=== PATIENT | male | born 1965 | race Caucasian/White ===

== ENCOUNTER 2020-04-24 01:45 | Inpatient (IN) ==
[2020-04-24] MEDS ORDERED: NITROGLYCERIN SL 0.4 MG/TAB TAB ONE (02:01)
[2020-04-24] MEDS ORDERED: ASPIRIN CHEW 324 MG ONE (02:01)
[2020-04-24 02:14] LABS: Basophils # (auto) 0.05 K/uL (0-0.2); Basophils % (auto) 0.5 %; Eosinophils # (auto) 0.34 K/uL (0-0.5); Eosinophils % (auto) 3.1 %; Hematocrit (blood only) 47.6 % (42-52); Hemoglobin 16.5 g/dL (14.0-18.0); Immature Granulocytes # (auto) 0.04 K/uL (0.00-0.02); Immature Granulocytes % (auto) 0.4 %; Lymphocytes # (auto) 2.35 K/uL (1.2-3.4); Lymphocytes % (auto) 21.5 %; Mean Corpuscular Hemoglobin 30.3 pg (25-34); Mean Corpuscular Hgb Conc 34.7 g/dL (32-36); Mean Corpuscular Volume 87.3 fL (80-100); Mean Platelet Volume 9.6 fL (7.4-10.4); Monocytes # (auto) 0.67 K/uL (0.11-0.59); Monocytes % (auto) 6.1 %; Neutrophils # (auto) 7.49 K/uL (1.4-6.5); Neutrophils % (auto) 68.4 %; Platelet Count 290 K/uL (130-400); RDW Standard Deviation 41.2 fL (36.4-46.3); Red Blood Count 5.45 M/uL (4.7-6.1); White Blood Count 10.94 K/uL (4.8-10.8)
[2020-04-24] MEDS ORDERED: HEPARIN (PORCINE) 1000 UNIT/ML 10 ML (CATH LAB USE ONLY) ONE (02:18)
[2020-04-24] MEDS ORDERED: fentaNYL citrate 100 MCG/2 ML VIAL ONE (02:18)
[2020-04-24] MEDS ORDERED: niCARdipine HCL INJ 2.5 MG/ML 10 ML AMP ONE (02:18)
[2020-04-24] MEDS ORDERED: MIDAZOLAM HCL 1 MG/ML 2ML VIAL ONE (02:18)
[2020-04-24] MEDS ORDERED: NITROGLYCERIN/D5W 100MCG/ML 20ML SYR ONE (02:19)
[2020-04-24] MEDS ORDERED: TICAGRELOR 90 MG TAB PO ONE (02:23)
[2020-04-24] MEDS ORDERED: HEPARIN SQ 5000 UNIT HEART ALERT CARP ONE (02:23)
[2020-04-24 02:25] LABS: Albumin Level 4.1 gm/dl (3.4-5.0); BUN Creatinine Ratio 12.4 (10-20); Calcium 9.8 mg/dl (8.5-10.1); Creatinine Clr Calc Pharmacy 94.1 ml/min; Est GFR (African American) 83.8; Est GFR (Non-African American) 72.3; Magnesium 2.1 mg/dl (1.8-2.4); Potassium 3.7 mmol/L (3.5-5.1)
--- NOTE | 2020-04-24 02:31 | Pre Anesthesia Assessment ---
Date of Service April 24, 2020 Pre Sedation Assessment Vital Signs Temp Pulse Pulse Resp BP BP Pulse Ox 04/24/20 02:19 95 04/24/20 02:15 74 18 141/105 H 95 04/24/20 02:10 73 74 18 146/104 H 146/104 H 96 04/24/20 02:05 74 18 175/104 H 97 04/24/20 02:04 81 17 177/122 H 96 04/24/20 01:48 97.7 F 71 19 178/115 H 98 Cardiovascular RRR, no murmur, no edema Respiratory normal respiratory effort, lungs clear to auscultation Pre-Sedation Airway Assessment Smoking Status: Never smoker Hx Sleep Apnea: No Hx Difficult Intubation: No Short, Thick Neck: No Thyromental Distance: > or= 3.5 Finger Breadths Oral Cavity: + WNL Mallampati Class: III ASA: ASA3 Procedure Planning Contraindications for Sedation: none Current Medications Reviewed: Yes Notes The planned sedation has been discussed with the patient. Informed Consent was obtained. I have identified the patient, determined the appropriateness of sedation and have assessed the patient immediately prior to the procedure. All medicine(s) and interventions are by my order.
[2020-04-24 02:32] LABS: iSTAT Hemoglobin 15.6 g/dl (14.0-18.0); iSTAT Ionized Calcium 1.23 mmol/l (1.12-1.32); iSTAT Potassium 3.9 mmol/L (3.3-5.0)
[2020-04-24 02:35] LABS: INR 1.1 (0.9-1.1); Partial Thromboplastin Ratio 0.9; Partial Thromboplastin Time 25.5 Seconds (21.0-31.0); Prothrombin Time 11.5 Seconds (9.0-12.0)
--- NOTE | 2020-04-24 02:37 | Cardiology Consultation ---
Date of Consultation April 24, 2020 Assessment & Plan (1) Acute IA: Presentation consistent with anterior STEMI and recommend proceeding with emergent cardiac catheterization and likely primary PCI. No apparent contraindications to procedure. Discussed risks, benefits, alternatives of procedure with patient and they are willing to proceed. Given IV heparin and ticagrelor 180 mg in the ED. Further recommendations pending findings of coronary angiography. History of Present Illness History of Present Illness 55-year-old man here with acute chest pain and ECG concerning for acute IA. Patient seen emergently in the ED after heart alert activated upon arrival. No significant past cardiac history. No chronic medical issues. Recent left knee meniscal tear post surgical repair on standing NSAIDs currently. Patient began having stuttering chest pain more than 12 hours ago. Pain became more severe this evening will try to go to sleep. Describes substernal pain radiating to back with associated vomiting, diaphoresis. Denies similar symptoms in the past. Chest pain down to 3 out of 10 after several nitroglycerin in ED. Hemodynamically stable. EKG showed anterior ST elevations. Allergies Allergy/AdvReac Type Severity Reaction Status Date / Time Penicillins Allergy Intermediate Rash Verified 04/24/20 02:00 Home Medications Home Medications Medication Instructions Recorded Confirmed Type meloxicam 15 mg PO DAILY 04/24/20 04/24/20 History naproxen 500 mg PO BID 04/24/20 04/24/20 History Patient History Social History Smoking Status: Never smoker Preferred Language: Khmer Feels Safe at Home: Yes Review of Systems Review of Systems: Not obtained in the setting of emergent situation Physical Exam Physical Exam: General: No acute distress HEENT: Sclerae anicteric, mucous membranes moist Lungs: Clear to auscultation bilaterally, no rhonchi or wheezes Cardiac: Regular rate and rhythm, no murmurs. Abdomen: Soft, nontender, nondistended, positive bowel sounds. Extremities: Warm, well perfused, no edema. 2+ radial pulses Skin: No rashes or lesions. Neuro: Nonfocal Psych: Alert orient x3, normal affect and mood Results & Data ([facility]) Vital Signs (Past 12 Hours) Vital Signs Temp Pulse Pulse Resp BP BP Pulse Ox 04/24/20 02:19 95 04/24/20 02:15 74 18 141/105 H 95 04/24/20 02:10 73 74 18 146/104 H 146/104 H 96 04/24/20 02:05 74 18 175/104 H 97 04/24/20 02:04 81 17 177/122 H 96 04/24/20 01:48 97.7 F 71 19 178/115 H 98 PG Care Time/CCT Total # of Minutes Spent Total Time Spent with Patient: Total time spent is greater than 50% in coordination of care (as documented) at patient's floor/unit and/or counseling patient: Coding Level of Care Code 26669 Inpt Consult Level 5 Diagnoses Acute IA I21.9
[2020-04-24 02:43] LABS: Albumin Globulin Ratio 1.1 (0.9-2); Bilirubin,Total 0.8 mg/dl (0.2-1); Creatine Kinase MB 3.6 ng/ml (0.5-3.6); Globulin 3.7 gm/dl (2.5-4.0); Thyroid Stimulating Hormone 1.51 uIu/ml (0.300-4.500); Total Protein 7.8 gm/dl (6.4-8.2); Troponin I 0.122 ng/ml (0-0.045)
--- NOTE | 2020-04-24 02:48 | Emergency Department Note ---
Impression & Plan ST elevation (STEMI) myocardial infarction ED Provider Note NAME: OLIVIA COLLIER AGE: 55 SEX: M ARRIVES VIA: Walk-In INFORMANT: Patient, his ED PROVIDER(S): Manisha Kelly DO CHIEF COMPLAINT: Chest pain PLAN: Disposition: Cardiac Community Outreach Manager Condition: Stable MEDICAL DECISION MAKING: This is a 55-year-old male patient who presents to the emergency department with substernal chest discomfort that radiates to his back and left arm. EKG shows evidence of STEMI. A heart alert was called. Patient received sublingual nitroglycerin and baby aspirin. The patient will go to the cardiac Community Outreach Manager Triage Nursing notes reviewed and agree them. Additional history obtained from patient's Vital Signs: reviewed and remarkable for hypertension Differential diagnosis: STEMI, GERD, NSTEMI, aortic dissection ER treatment provided: Sublingual nitroglycerin Baby aspirin Diagnostics interpreted by me: ECG: Normal sinus rhythm at a rate of [address] segment elevation in the anterior and lateral leads consistent with STEMI. Cardiac Monitoring: Normal sinus rhythm at a rate of [address] segment elevation Laboratory studies: See below Imaging studies: Portable chest x-ray: As per my interpretation-cardiomegaly with no pulmonary infiltrates or consolidation. Narrow mediastinum noted Consultation(s): Dr. Dodge-cardiology HPI: 55/M arrives for evaluation of chest pain. The patient had an initial episode of chest discomfort around noontime today which lasted approximately 15 minutes and radiated through to his back and down his left arm. The patient then had a second episode around 11 PM this evening as he was preparing to go to bed this started in the sub-sternum and radiated through to the back. He woke his up around 1 AM and she brought him here for evaluation. The patient denies ever having pain like this in the past. He did feel somewhat short of breath. The pain did seem to go to his left arm. ROS: See above HPI for pertinent positives & negatives. A total of 10 systems reviewed and were otherwise negative. 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 Extraocular eye muscles are intact, and sclera are anicteric. Nose - moist nasal mucosa without discharge. Mouth - moist buccal mucosa. Oropharynx is nonerythematous and there is no tonsillar exudate or edema noted. Neck: Supple; no JVD, nuchal rigidity, cervical lymphadenopathy, or auscultated bruits. Heart: Regular rate and rhythm. There is a normal S1 and S2 with no murmurs, clicks, or gallops appreciated. Lungs: Clear to auscultation bilaterally with no wheezes, rales, or rhonchi. Abdomen: Soft, completely nontender, nondistended, with good bowel sounds. The re are no palpable pulsatile masses or hepatosplenomegaly. There is no guarding, rigidity, or rebound noted. Extremities: No evidence of cyanosis, clubbing, or edema. There are easily palpable peripheral pulses. Skin: warm and dry with good turgor and no rashes. ED COURSE: Times/Reassessments: 0155: The patient was evaluated in room C 11. A heart alert was called. An order was placed for continuous cardiac monitoring. The patient was in a normal sinus rhythm with obvious ST segment elevation. 2 large-bore IV locks were initiated. The patient was given sublingual nitroglycerin in an effort to treat his chest discomfort and lower his blood pressure. The patient was given baby aspirin to chew. The patient did get some relief of his chest discomfort. I discussed the case with Dr. Dodge at the bedside. I kept the patient's abreast of the situation as she was here in the emergency department. I have personally spent greater than 35 minutes of critical care time in the direct management of this patient. This includes bedside care, interpretation of diagnostic studies, and testing, discussion with consultants, patient, and family members, and other required patient management activities. This 35 minutes is in excess of all separately billable procedures. Manisha Kelly DO Past Med/Surg History Social History Smoking Status: Never smoker Preferred Language: Gabonese Feels Safe at Home: Yes Allergies Allergies Allergy/AdvReac Type Severity Reaction Status Date / Time Penicillins Allergy Intermediate Rash Verified 04/24/20 02:00 Home Meds Home Medications Medication Instructions Recorded Confirmed meloxicam 15 mg PO DAILY 04/24/20 04/24/20 naproxen 500 mg PO BID 04/24/20 04/24/20 Results & Data (ED) Vital Signs Vital Signs - 24 hr 04/24/20 01:48 04/24/20 02:04 04/24/20 02:05 Temperature 36.5 C Temperature Source Oral Pulse Rate 71 74 Pulse Rate [Right Finger] 81 Pulse Rate from SpO2 Sensor 73 Respiratory Rate 19 17 18 Respiratory Effort / Characteristics Non-Labored Spontaneous Respiratory Depth Normal Respiratory Pattern Regular Blood Pressure 178/115 H 175/104 H Blood Pressure [Right Arm] 177/122 H Blood Pressure Mean 136 128 Blood Pressure Mean [Right Arm] 140 Blood Pressure Position [Right Arm] Lying Pulse Oximetry 98 96 97 Oxygen Delivery Method Room Air Sepsis Recent Fever Within 48 Hours No Sepsis New/Unexplained Change in Mental Status N/A Sepsis Action Taken by Nursing No Action Required 04/24/20 02:10 04/24/20 02:15 04/24/20 02:19 Temperature Temperature Source Pulse Rate 73 74 Pulse Rate [Right Finger] 74 Pulse Rate from SpO2 Sensor 73 74 Respiratory Rate 18 18 Respiratory Effort / Characteristics Non-Labored Spontaneous Respiratory Depth Normal Respiratory Pattern Regular Blood Pressure 146/104 H 141/105 H Blood Pressure [Right Arm] 146/104 H Blood Pressure Mean 121 109 Blood Pressure Mean [Right Arm] 118 Blood Pressure Position [Right Arm] Lying Pulse Oximetry 96 95 95 Oxygen Delivery Method Room Air Room Air Sepsis Recent Fever Within 48 Hours Sepsis New/Unexplained Change in Mental Status Sepsis Action Taken by Nursing Laboratory Data Result diagrams: 04/24/20 02:00 04/24/20 02:00 Lab Results 04/24/20 04/24/20 04/24/20 Range/Units 02:00 02:00 02:16 WBC 10.94 H (4.8-10.8) K/uL RBC 5.45 (4.7-6.1) M/uL Hgb 16.5 (14.0-18.0) g/dL POC Hgb (14.0-18.0) g/dl Hct 47.6 (42-52) % POC Hct (42-52) % MCV 87.3 (80-100) fL MCH 30.3 (25-34) pg MCHC 34.7 (32-36) g/dL RDW Std Deviation 41.2 (36.4-46.3) fL RDW Coeff of Neela 13.0 (11.5-14.5) % Plt Count 290 (130-400) K/uL MPV 9.6 (7.4-10.4) fL Immature Gran % (Auto) 0.4 % Neut % (Auto) 68.4 % Lymph % (Auto) 21.5 % [place] % (Auto) 6.1 % Eos % (Auto) 3.1 % Baso % (Auto) 0.5 % Neut # (Auto) 7.49 H (1.4-6.5) K/uL Lymph # (Auto) 2.35 (1.2-3.4) K/uL [place] # (Auto) 0.67 H (0.11-0.59) K/uL Eos # (Auto) 0.34 (0-0.5) K/uL Baso # (Auto) 0.05 (0-0.2) K/uL Immature Gran # (Auto) 0.04 H (0.00-0.02) K/uL PT 11.5 (9.0-12.0) Seconds INR 1.1 (0.9-1.1) APTT 25.5 (21.0-31.0) Seconds PTT Ratio 0.9 POC Sodium (135-144) mmol/L Sodium 141 (136-145) mmol/L POC Potassium (3.3-5.0) mmol/L Potassium 3.7 (3.5-5.1) mmol/L POC Chloride (101-112) mmol/L Chloride 106 (98-107) mmol/L Carbon Dioxide 27 (21-32) mmol/L POC Total CO2 (24-31) mmol/L Anion Gap 8.0 (3-11) POC Anion Gap (16-25) mmol/L POC BUN (7-18) mg/dl BUN 14 (7-18) mg/dl Creatinine 1.13 (0.6-1.4) mg/dl POC Creatinine (0.6-1.3) mg/dl Est Cr Clr Drug Dosing 94.1 ml/min Est GFR ( Amer) 83.8 Est GFR (Non-Af Amer) 72.3 BUN/Creatinine Ratio 12.4 (10-20) Glucose 129 H (70-99) mg/dl POC Glucose (other) (70-99) mg/dl Calcium 9.8 (8.5-10.1) mg/dl POC Ioniz Calcium Juan (1.12-1.32) mmol/l Magnesium 2.1 (1.8-2.4) mg/dl Total Bilirubin 0.8 (0.2-1) mg/dl AST 19 (15-37) U/L ALT 49 (12-78) U/L Alkaline Phosphatase 62 (45-117) U/L Total Creatine Kinase 144 (39-308) U/L CK-MB (CK-2) 3.6 (0.5-3.6) ng/ml CK/CKMB % Calc 2.5 (0-3.0) POC Troponin I (0-0.045) ng/ml Troponin I 0.122 H* (0-0.045) ng/ml Total Protein 7.8 (6.4-8.2) gm/dl Albumin 4.1 (3.4-5.0) gm/dl Globulin 3.7 (2.5-4.0) gm/dl Albumin/Globulin Ratio 1.1 (0.9-2) Lipase 77 (73-393) U/L TSH 1.510 (0.300-4.500) uIu/ml 04/24/20 04/24/20 Range/Units 02:20 02:23 WBC (4.8-10.8) K/uL RBC (4.7-6.1) M/uL Hgb (14.0-18.0) g/dL POC Hgb 15.6 (14.0-18.0) g/dl Hct (42-52) % POC Hct 46 (42-52) % MCV (80-100) fL MCH (25-34) pg MCHC (32-36) g/dL RDW Std Deviation (36.4-46.3) fL RDW Coeff of Neela (11.5-14.5) % Plt Count (130-400) K/uL MPV (7.4-10.4) fL Immature Gran % (Auto) % Neut % (Auto) % Lymph % (Auto) % [place] % (Auto) % Eos % (Auto) % Baso % (Auto) % Neut # (Auto) (1.4-6.5) K/uL Lymph # (Auto) (1.2-3.4) K/uL [place] # (Auto) (0.11-0.59) K/uL Eos # (Auto) (0-0.5) K/uL Baso # (Auto) (0-0.2) K/uL Immature Gran # (Auto) (0.00-0.02) K/uL PT (9.0-12.0) Seconds INR (0.9-1.1) APTT (21.0-31.0) Seconds PTT Ratio POC Sodium 141 (135-144) mmol/L Sodium (136-145) mmol/L POC Potassium 3.9 (3.3-5.0) mmol/L Potassium (3.5-5.1) mmol/L POC Chloride 103 (101-112) mmol/L Chloride (98-107) mmol/L Carbon Dioxide (21-32) mmol/L POC Total CO2 26 (24-31) mmol/L Anion Gap (3-11) POC Anion Gap 17.0 (16-25) mmol/L POC BUN 16 (7-18) mg/dl BUN (7-18) mg/dl Creatinine (0.6-1.4) mg/dl POC Creatinine 1.0 (0.6-1.3) mg/dl Est Cr Clr Drug Dosing ml/min Est GFR ( Amer) Est GFR (Non-Af Amer) BUN/Creatinine Ratio (10-20) Glucose (70-99) mg/dl POC Glucose (other) 138 H (70-99) mg/dl Calcium (8.5-10.1) mg/dl POC Ioniz Calcium Juan 1.23 (1.12-1.32) mmol/l Magnesium (1.8-2.4) mg/dl Total Bilirubin (0.2-1) mg/dl AST (15-37) U/L ALT (12-78) U/L Alkaline Phosphatase (45-117) U/L Total Creatine Kinase (39-308) U/L CK-MB (CK-2) (0.5-3.6) ng/ml CK/CKMB % Calc (0-3.0) POC Troponin I 0.12 H (0-0.045) ng/ml Troponin I (0-0.045) ng/ml Total Protein (6.4-8.2) gm/dl Albumin (3.4-5.0) gm/dl Globulin (2.5-4.0) gm/dl Albumin/Globulin Ratio (0.9-2) Lipase (73-393) U/L TSH (0.300-4.500) uIu/ml Administered Medications Discontinued Medications Aspirin (Aspirin Chew 324 Mg) Confirm Administered Dose 324 mg .ROUTE .STK-MED ONE Stop: 04/24/20 02:02 Last Admin: 04/24/20 02:02 Dose: 324 mg Documented by: [id number] Heparin Sodium (Beef Lung) (Heparin Sq 5000 Unit Heart Alert Carp) Confirm Administered Dose 5,000 units .ROUTE .STK-MED ONE Stop: 04/24/20 02:24 Last Admin: 04/24/20 02:25 Dose: 5,000 units Documented by: [id number] Cosigned by: [id number] Nitroglycerin (Nitroglycerin Sl 0.4 Mg/Tab Tab) Confirm Administered Dose 0.4 mg .ROUTE .STK-MED ONE Stop: 04/24/20 02:02 Last Admin: 04/24/20 02:03 Dose: 0.4 mg Documented by: [id number] Ticagrelor (Ticagrelor 90 Mg Tab) Confirm Administered Dose 180 mg PO .STK-MED ONE Stop: 04/24/20 02:24 Last Admin: 04/24/20 02:25 Dose: 180 mg Documented by: [id number] Discharge Plan Visit Data Chief Complaint: Chest Pain Stated Complaint: chest pains ED Provider: Manisha Kelly Discharge Problem: ST elevation (STEMI) myocardial infarction Patient Disposition: Still a Patient Discharge Instructions Interventions: ED Discharge Assessment Last Done: 04/24/20 02:31
[2020-04-24] MEDS ORDERED: NITROGLYCERIN SL 0.4 MG/TAB TAB SL PRN (03:46)
[2020-04-24] MEDS ORDERED: ACETAMINOPHEN 325 MG TAB PO PRN (03:46)
[2020-04-24] MEDS ORDERED: ONDANSETRON INJ 2 MG/ML 2 ML VIAL IV PRN (03:46)
[2020-04-24] MEDS ORDERED: ICU PROTOCOL FOR HYPERGLYCEMIA PRN (03:46)
--- NOTE | 2020-04-24 03:52 | Post Anesthesia Assessment ---
Date of Service April 24, 2020 Post Sedation Assessment Vital Signs Temp Pulse Pulse Resp BP BP Pulse Ox 04/24/20 02:19 95 04/24/20 02:15 74 18 141/105 H 95 04/24/20 02:10 73 74 18 146/104 H 146/104 H 96 04/24/20 02:05 74 18 175/104 H 97 04/24/20 02:04 81 17 177/122 H 96 04/24/20 01:48 97.7 F 71 19 178/115 H 98 Recovery Score Activity: Moves 4 extremities Respiration: Deep Breath/Cough Circulation: +/-20% PreAnes Value Consciousness: Fully Awake Oxygen Saturation: O2 needed for >90% Discharge Sedation Level of Care: Fast Track Phase II Post Sedation Plan On clinical assessment, the patient appears to have tolerated the sedation without complications. Patient is recovering as anticipated. Patient will continue to be monitored by nursing and may be discharged when sedation discharge criteria are met per below protocol. Upon Completions of procedure up to 15 minutes continue every 5 minute vital signs and the P.A.R. score; then discharge to a Phase I or Fast Track to Phase II per the following guidelines: * Discharge Patient to appropriate Phase II area if PAR is 8 or greater or return to pre- procedure baseline. The post - procedure orders will be as directed. * If PAR score is less than 8 or not return to pre-procedure baseline then patient will follow Phase I monitoring till PAR is reached for Phase II. The Phase I may be done in procedure room or may call to secure a Phase I area. * If naloxone or flumazenil are used for reversal, hold in Phase I for continued monitoring from when last reversal dose was given for a minimum of 60 minutes or longer pending the nurse and/or physician discretion of patient condition before discharge to Phase II. Please call the Sedation Physician to re-evaluate and complete post-note for discharge to Phase II area. Do NOT discharge from procedure sedation or Phase 1 until post- sedation evaluation note is complete by procedure /sedation MD Sedation Discharge Instructions to be given to the patient at discharge to home.
[2020-04-24] MEDS ORDERED: SODIUM CHLORIDE 0.9% 1000ML 1,000 ML IV SCH (04:00)
--- NOTE | 2020-04-24 04:04 | Cardiac Catheterization ---
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 Cardiac Status Clinical evaluation leading to the procedure CAD Presenation: STEMI Anginal Classification: CCS IV Heart Failure: No Cardiogenic Shock within 24 Hours: No Cardiac Arrest within 24 Hours: No Imaging Studies Past 6 Months: No Stress Studies Past 6 Months: No Diagnostic Physicians Name: Jae Dodge MD Status: Emergency Closure Device Percutaneous Entry Location: Radial Closure Device: Radial Band Recommendations: PCI without planned CABG PCI Indication: Immediate PCI for STEMI First Noted: First EKG Lesion Segment Name: Mid LAD Culprit Artery: Yes Stenosis Prior to Rx (%): 100% Chronic Total Occlusion: No IVUS: No FFR: No Pre-Procedure MUSTAPHA Flow: 0 Previously Treated Lesion: No Lesion Complexity: Non-High/Non-C Lesion Length (mm): 20 Thrombus Present: Yes Bifurcation Lesion: Yes Guidewire Across Lesion: Stenosis Post-Procedure (%): 0 Post-Procedure MUSTAPHA Flow: 3 Devices(s) Deployed: Yes Yes Intraprocedure Events Significant Disection: No Perforation: No Cardiac Cath Procedure Full Procedure Date April 24, 2020 Pre-Procedure Diagnosis Pre-Procedure Diagnosis: STEMI AUC Score AUC Score: 9 Post-Procedure Diagnosis Post-Procedure Diagnosis: Severe CAD, Successful PCI and Elevated Intracardiac Pressures Procedure(s) Performed Procedure(s) Performed: Coronary Angiography, Left Heart Cath, Drug Eluting S tent and IVUS Casting Finisher Jae Dodge MD Auto Customize Painter(s) Anderson Estimated Blood Loss Estimated Blood Loss: 15 Medication(s) Medication(s): Fentanyl, Heparin, Lidocaine 1%, Nicardipine, Nitroglycerin and Versed Medication(s): Ticagrelor Summary of Findings Indication: STEMI/Heart Alert Access: 6 Fr right radial artery Catheters: EBU 3.5 guide, diagnostic JR4 Findings: LM -large caliber, luminal irregularities LAD -large caliber, diffuse 30% mid segment disease before 100% acute occlusion just after takeoff of second diagonal Circumflex -medium caliber vessel, 40 to 50% distal disease after takeoff of OM 2. Medium caliber OM 2 without significant disease. RCA -large caliber, dominant, 20% mid segment disease, 20% distal disease, PDA without significant disease. LVEDP -21 -- PCI -- Antithrombotic therapy: Heparin, ticagrelor Procedure: Left main cannulated with EBU 3.5 guide BMW wire passed across lesion into distal vessel Mid LAD lesion predilated with 2.5 compliant balloon Pro-water wire placed into second diagonal IVUS used to assess length of disease segment, degree of calcification. Mild diffuse disease with eccentric calcification extending from first septal across takeoff of second diagonal. MLA 2.1 mm, measured stenosis 81% after balloon inflation. Dilated lesion stented with 3.5 x 26 mm [place] drug-eluting stent Second diagonal rewired with boat pilot 50 wire Stent post-dilated with 4.0 noncompliant balloon Ostium of second diagonal dilated through stent struts with 2.0 and 2.5 balloon IC vasodilators administered for spasm Repeat IVUS showed well apposed, well-expanded stent with no edge complications Post procedure MUSTAPHA 3 flow, stent well expanded with minimal residual stenosis and no apparent cardiac complications. Arterial Closure: TR band Summary: 1. Anterior STEMI/100% acute occluded mid LAD 2. Mild to moderate non-culprit coronary artery disease -40 to 50% distal circumflex 20% mid, distal RCA disease 3. Elevate intracardiac filling pressure 4. Successful PCI of mid LAD with single drug-eluting stent (3.5 x 26 mm [place]; postdilated with 4.0 NC). -Angioplasty to jailed proximal second diagonal through stent struts with 2.5 balloon Recommendations: Admit to ICU for continued monitoring Loaded with ticagrelor 180 mg Continue dual-antiplatelet therapy for at least 1 year. Trend troponins until peak, Check Echo Uptitrate beta-gerber/SEVERO as BP allows High-dose statin Consult cardiac Rehab Hemodynamics Rest Ao:: 135/92/110 Final Ao: 121/75/93 LV: 106/21 Recommendations Recommendations: PCI without planned CABG Specimens Specimens: None Radiation Exposure (mGy) 3564 Contrast (mls) 110 Fluids (cc crystalloids) Fluids (cc crystalloids): 100 Drains Drains: None Anesthesia Moderate Procedural Complication(s) None Disposition ICU I attest to the content of the Intraoperative Record and any orders documented therein. Any exceptions are noted below. Vital Therapies Card Cath Procedure Codes Cardiac Catheterization Procedure 1: Cardiovascular Cath Procedures: 29029 Coronaries and LHC (+/-LV) Therapeutic Services & Ancillary Proc Procedure 1: Cardiovascular Tx and Anc Procedures: 12574 IV Ultrasound (Coronary or Graft) Moderate Sedation Procedure 1: Sedation/Anesthesia: 39672 Mod Sedation by the same physician;Init15 Min Child Age 5 & Up Procedure 2: Sedation/Anesthesia: 75644 Mod Sedation by the same physician; Ea [id number] Minutes Stenting Procedure 1: Cardiovascular Stent Procedures: 81281 Perc transluminal revascularization of acute sub/total occl, aMI PG Care Time/CCT Total # of Minutes Spent Total Time Spent with Patient: Total time spent is greater than 50% in coordination of care (as documented) at patient's floor/unit and/or counseling patient:
--- NOTE | 2020-04-24 04:22 | Critical Care Consultation ---
Date of Consultation April 24, 2020 Assessment & Plan (1) Admitted to intensive care unit: Reason Critically Ill: 55-year-old male with an acute anterior ST segment elevation myocardial infarction who is status post PTCA with TENA x1 to the mid LAD requiring close hemodynamic monitoring status post intervention. NEURO - * CAM ICU: NEGATIVE CARDIAC/VASCULAR - * Actue Anterior STEMI s/p PTCA w/ DESx1 to the mid LAD: * Chest pain resolved at this time. Still with some mild residual back pain. * EKG improving. * Trend Troponin * AM Echo * ASCVD Rx per typical. * EKG (Initial): NSR@65bpm. ST Elevations in leads V2-6). QTc 401 ms. * Monitor on telemetry. RESPIRATORY - * No h/o respiratory disease. No smoking history. * Saturating well on room air. GI/NUTRITION - * AHA diet. RENAL/LYTES - * No significant electrolyte derangement. - * No concerns. ENDO - * No h/o DM or Thyroid Dz * BSGs per unit protocol. ISS --> gtt per unit policy. HEME - * Stable H&H ID - * No concern for infectious sources at this time. LINES/IV ACCESS - * PIVs x2 DVT PROPHYLAXIS - * Hold s/p Heparin/Brilinta loading. Anticipate early ambulation. * SCDs I have personally spent 35 minutes of critical care time in the direct management of this patient. This is a life/limb threatening event. This includes time spent evaluating patient, direct bedside care, chart review, placing orders, interpretation of diagnostic studies, discussion with consultants, patient, and family members, as well as other required patient management activities. This time is exclusive of all separately billable procedures, and teaching time and separate from and in addition to any other critical care service time. Thank you for allowing us to participate in the care of this patient. Please refer to my attending physician's documentation for any further recommendations. (2) ST elevation myocardial infarction (STEMI) of anterior wall: (3) S/P PTCA (percutaneous transluminal coronary angioplasty): (4) S/P drug eluting coronary stent placement: History of Present Illness Attending Physician: Jae Dodge MD History of Present Illness Patient is a 55-year-old male with no significant past medical history who presented to the emergency department this morning with complaints of substernal chest pain with radiation to his back. Patient reports that earlier this afternoon around lunchtime he had what he felt was consistent with his prior episodes of heartburn. He did take Tums which he thinks might have abated his symptoms. Last evening at approximately 11 PM, he notes that he did have return of some substernal discomfort and burning with associated nausea and liquid vomiting x2-3. His symptoms did improve and he was able to relax for a few hours. At approximately 1 to 1:30 AM, the patient had development of intense substernal chest pain with radiation to his back and down his LEFT arm. This prompted him to come to the emergency department for further evaluation. Upon arrival, the patient had an EKG performed which demonstrated anterior ST segment elevations. Heart alert was called. Patient was taken to the catheterization suite where he underwent PTCA with TENA x1 to the 100% occluded mid LAD. Diagonal was ballooned as well. Patient did have some runs of atrial tachycardia for which she was asymptomatic. Otherwise, the patient did well throughout the entire procedure without immediate complication. Upon arrival in the ICU, the patient is awake, alert, and oriented. He states that he does not have any further chest pain, but does complain of some ongoing slight back pain. Otherwise, he feels significantly better and denies any complaints of headaches, dizziness, lightheadedness, chest pain, palpitations, shortness of breath, pleuritic pain, nausea, vomiting, abdominal pain, or numbness/weakness into the extremities. Allergies Allergy/AdvReac Type Severity Reaction Status Date / Time Penicillins Allergy Intermediate Rash Verified 04/24/20 02:00 Home Medications Home Medications Medication Instructions Recorded Confirmed Type meloxicam 15 mg PO DAILY 04/24/20 04/24/20 History naproxen 500 mg PO BID 04/24/20 04/24/20 History Patient History Social History Smoking Status: Never smoker Hx Alcohol Use: No Hx Substance Use: No Preferred Language: Serbian Communication Ability: Effective Hospice Aide Required: No Beliefs That Will Affect Care: None Current Living Situation: Spouse Other Information That Helps Us Care for You: No Feels Safe at Home: Yes Safety Concerns: Feels Safe At This Time Review of Systems Review of Systems: A complete 10 point review of systems was reviewed with the patient with pertinent positives and negatives as per history of present illness. All else were negative. Physical Exam Physical Exam: VITAL SIGNS - Vital signs and nursing notes were reviewed. GENERAL - 55-year-old male appearing his stated age who is in no acute distress. Communicates well with provider and answers questions appropriately. HEAD - NC/AT. EYES - PERRL with EOMI bilaterally. Sclera anicteric. Palpebral conjunctiva pink and moist with no injection noted. EARS - No deformities of external structures noted on gross examination bilaterally. NOSE - Midline and without cyanosis. No epistaxis or purulent drainage noted. MOUTH/OROPHARYNX - Without perioral cyanosis. Buccal mucosa pink and moist and without leukoplakia. NECK - Neck with FROM. LUNGS - Chest wall symmetric without accessory muscle use, intercostals retractions, or central cyanosis. Normal vesicular breath sounds CTA B/L. No wheezes, rales, or rhonchi appreciated. CARDIAC - RRR with S1/S2. No murmur, rubs, or gallops appreciated. No reproducible tenderness to palpation appreciated over the anterior chest wall. ABDOMEN - Abdominal contour flat without pulsations or visible masses. BS normoactive all four quadrants. No tenderness, palpable masses, hepatosplenomegaly, or ascites noted. EXTREMITIES - No clubbing or peripheral cyanosis. No pretibial edema present. +3/5 radial and dorsalis pedis pulses palpated throughout. +5/5 strength noted in UE/LE bilaterally. NEUROLOGIC - Cranial nerves II through XII grossly intact. Sensory intact to light touch throughout. PSYCH - A&Ox3 and cooperates fully with examiner. Pt is very pleasant and interacts well with examiner. Results & Data Results & Data ([facility]) Vital Signs (Past 12 Hours) Vital Signs Temp Pulse Pulse Resp BP BP Pulse Ox 04/24/20 02:19 95 04/24/20 02:15 74 18 141/105 H 95 04/24/20 02:10 73 74 18 146/104 H 146/104 H 96 04/24/20 02:05 74 18 175/104 H 97 04/24/20 02:04 81 17 177/122 H 96 04/24/20 01:48 36.5 C 71 19 178/115 H 98 Coding Level of Care Code Critical Care 1st 30-74 mins Diagnoses Admitted to intensive care unit Z78.9 ST elevation myocardial infarction (STEMI) of anterior wall I21.09 S/P PTCA (percutaneous transluminal coronary angioplasty) Z98.61 S/P drug eluting coronary stent placement Z95.5 Time Spent (min) 35
[2020-04-24 05:01] LABS: Basophils # (auto) 0.02 K/uL (0-0.2); Basophils % (auto) 0.2 %; Eosinophils # (auto) 0.03 K/uL (0-0.5); Eosinophils % (auto) 0.3 %; Hematocrit (blood only) 45.2 % (42-52); Hemoglobin 15.3 g/dL (14.0-18.0); Immature Granulocytes # (auto) 0.03 K/uL (0.00-0.02); Immature Granulocytes % (auto) 0.3 %; Lymphocytes # (auto) 0.85 K/uL (1.2-3.4); Lymphocytes % (auto) 7.7 %; Mean Corpuscular Hemoglobin 29.5 pg (25-34); Mean Corpuscular Hgb Conc 33.8 g/dL (32-36); Mean Corpuscular Volume 87.3 fL (80-100); Mean Platelet Volume 9.8 fL (7.4-10.4); Monocytes # (auto) 0.38 K/uL (0.11-0.59); Monocytes % (auto) 3.4 %; Neutrophils # (auto) 9.73 K/uL (1.4-6.5); Neutrophils % (auto) 88.1 %; Platelet Count 279 K/uL (130-400); RDW Coefficient of Variation 12.9 % (11.5-14.5); RDW Standard Deviation 41.5 fL (36.4-46.3); Red Blood Count 5.18 M/uL (4.7-6.1); White Blood Count 11.04 K/uL (4.8-10.8)
[2020-04-24 05:49] LABS: Estimated Average Glucose 111 mg/dl; Hemoglobin A1C 5.5 % (4.5-5.6)
[2020-04-24 06:01] LABS: BUN Creatinine Ratio 13.2 (10-20); Calcium 9.4 mg/dl (8.5-10.1); Creatinine Clr Calc Pharmacy 99.9 ml/min; Est GFR (African American) 91.5; Potassium 4.1 mmol/L (3.5-5.1)
--- NOTE | 2020-04-24 06:56 | XRay Report ---
XR chest 1V portable CLINICAL HISTORY: Chest pain. COMPARISON STUDY: No previous studies for comparison. FINDINGS: Lung volumes are normal. Lungs are clear. There is no pneumothorax or pleural effusion. Car diac size is at the upper limits of normal. Mediastinal contours are normal. There is pulmonary vascu lar congestion with no evidence for pulmonary edema. IMPRESSION: Pulmonary vascular congestion without overt pulmonary edema. ACT 112: Negative or not required by law. Electronically signed by: Mauricio Flores M.D. 04/24/2020 6:55 AM
[2020-04-24] MEDS: ATORVASTATIN 40 MG TAB PO SCH (07:33)
[2020-04-24] MEDS: ASPIRIN 81 MG ECTAB PO SCH (07:33)
[2020-04-24] MEDS: lisinopril 5 MG TAB PO SCH (07:33)
[2020-04-24] MEDS ORDERED: METOPROLOL TARTRATE 25 MG TAB PO SCH (09:00)
[2020-04-24] MEDS: TICAGRELOR 90 MG TAB PO SCH ×2 (15:11→20:55)
--- NOTE | 2020-04-24 16:26 | XCELERA ---
[id number] \\[id number]_[id number]___[id number]
--- NOTE | 2020-04-24 18:57 | Electrocardiogram Report ---
Test Reason : Blood Pressure : / mmHG Vent. Rate : 071 BPM Atrial Rate : 071 BPM P-R Int : 168 ms QRS Dur : 084 ms QT Int : 364 ms P-R-T Axes : - degrees QTc Int : 395 ms Sinus rhythm with Premature supraventricular complexes possible Inferior infarct , age undetermined ST elevations concerning for acute anterior CO Abnormal ECG When compared with ECG of 24-APR-2020 01:56, (unconfirmed) Premature supraventricular complexes are now Present Inferior infarct is now Present ST no longer elevated in Lateral leads Confirmed by Jae Bowen ([id number]) on 04/24/2020 6:57:35 PM Referred By: REFERRED SELF Confirmed By:Jordan Bowen
--- NOTE | 2020-04-24 18:58 | Electrocardiogram Report ---
Test Reason : Blood Pressure : / mmHG Vent. Rate : 065 BPM Atrial Rate : 065 BPM P-R Int : 166 ms QRS Dur : 092 ms QT Int : 386 ms P-R-T Axes : 037 000 025 degrees QTc Int : 401 ms Normal sinus rhythm ST elevation consider anterolateral injury or acute infarct ACUTE FL / STEMI Abnormal ECG When compared with ECG of 10-MAR-2020 14:20, Questionable change in QRS axis ST elevation now present in Anterolateral leads T wave inversion now evident in Inferior leads T wave amplitude has decreased in Anterior leads Confirmed by Jae Bowen ([id number]) on 04/24/2020 6:58:32 PM Referred By: REFERRED SELF Confirmed By:Jordan Bowen
--- NOTE | 2020-04-24 19:02 | Electrocardiogram Report ---
Test Reason : Blood Pressure : / mmHG Vent. Rate : 078 BPM Atrial Rate : 078 BPM P-R Int : 160 ms QRS Dur : 096 ms QT Int : 378 ms P-R-T Axes : 037 -06 004 degrees QTc Int : 430 ms Sinus rhythm with occasional Premature ventricular complexes Inferior infarct (cited on or before 24-APR-2020) Evolving changes of anterior FL Abnormal ECG When compared with ECG of 24-APR-2020 03:55, (unconfirmed) Fusion complexes are no longer Present Confirmed by Jae Bowen ([id number]) on 04/24/2020 7:01:56 PM Referred By: REFERRED SELF Confirmed By:Jordan Bowen
[2020-04-24] MEDS: METOPROLOL TARTRATE 50 MG TAB PO SCH (20:55)
[2020-04-25 06:20] LABS: Calcium 8.5 mg/dl (8.5-10.1); Creatinine Clr Calc Pharmacy 108.2 ml/min; Est GFR (African American) 100.7; Est GFR (Non-African American) 86.9; Potassium 3.8 mmol/L (3.5-5.1)
[2020-04-25] MEDS: METOPROLOL TARTRATE 50 MG TAB PO SCH ×2 (08:09→19:35)
[2020-04-25] MEDS: TICAGRELOR 90 MG TAB PO SCH ×2 (08:09→19:35)
[2020-04-25] MEDS: ATORVASTATIN 40 MG TAB PO SCH (08:09)
[2020-04-25] MEDS: lisinopril 5 MG TAB PO SCH (08:09)
[2020-04-25] MEDS: ASPIRIN 81 MG ECTAB PO SCH (08:09)
--- NOTE | 2020-04-25 17:20 | XCELERA ---
[id number] \\[id number]_[id number]___[id number]
--- NOTE | 2020-04-25 23:07 | Discharge Summary ---
Date of Service April 25, 2020 Admission HPI Per Admitting Provider 55-year-old man here with acute chest pain and ECG concerning for acute KS. Patient seen emergently in the ED after heart alert activated upon arrival, approximately 2 AM. No significant past cardiac history. No chronic medical issues. Recent left knee meniscal tear post surgical repair on standing NSAIDs currently. Patient began having stuttering chest pain more than 12 hours ago. Pain became more severe this evening will try to go to sleep. Describes substernal pain radiating to back with associated vomiting, diaphoresis. Denies similar symptoms in the past. Chest pain down to 3 out of 10 after several nitroglycerin in ED. Hemodynamically stable. EKG showed anterior ST elevations. Specialty Data Cardiology 1. Anterior STEMI/100% acute occluded mid LAD 2. Mild to moderate non-culprit coronary artery disease -40 to 50% distal circumflex 20% mid, distal RCA disease 3. Elevate intracardiac filling pressure 4. Successful PCI of mid LAD with single drug-eluting stent (3.5 x 26 mm Sameer; postdilated with 4.0 NC). -Angioplasty to jailed proximal second diagonal through stent struts with 2.5 balloon Discharge Data Consultations 04/24/20 03:49 Consult Cardiac Rehabilitation Routine Consult Case Management - Discharge Planning Routine Consult Offensive Coordinator Routine Procedures Performed Operation Date: 04/24/20 02:15 Actual Procedures p Aspiration/PCI w/TENA for Stemi - Joel Dodge MD s Cineradiography w/Routine Exam - Joel Dodge MD p Cath, Left with Cors and Vent - Joel Dodge MD s IVUS Coronary Single Vessel - Joel Dodge MD s POBA SGL Vessel - Joel Dodge MD s IVUS Coronary each ADDL Vessel - Joel Dodge MD Hospital Course (1) Acute KS: Patient was taken emergently to cardiac catheterization lab in the setting of anterior STEMI and was found to have an acutely occluded mid LAD which was tr eated with a single drug-eluting stent along with angioplasty to second diagonal ostium through stent struts. Had mild to moderate residual non-culprit vessel coronary artery disease. Post procedure he was admitted to the ICU for further monitoring. He had mild residual chest/back pain which resolved by hospital day 2. Troponin peaked at 71. Post procedure echocardiogram showed borderline con centric LVH, LVEF 40 to 45% with akinetic apex. LV thrombus could not be excluded. Throughout the remainder of his hospitalization he remained chest pain-free, hemodynamically stable and electrically stable. He had no apparent access site complications. Post procedure renal function, hemoglobin unchanged. Repeat echocardiogram the day of discharge showed unchanged LV function with again questionable area of possible apical thrombus. Decision made to treat with anticoagulation for possible apical thrombus. He was discharged on triple therapy with aspirin, clopidogrel and Xarelto. He will follow-up with cardiology in 1 week. At follow-up visit plan to refer to cardiac rehab, clear for return to work and stop aspirin at that time with plan to continue on dual therapy. Repeat echocardiogram in 1 month. Discharge Instructions Home Medications aspirin 81 mg PO QAM #30 tab 04/25/20 [Rx] atorvastatin 80 mg PO QAM #30 tab 04/25/20 [Rx] clopidogrel 75 mg PO DAILY #30 tab 04/25/20 [Rx] lisinopril 5 mg PO DAILY #30 tab 04/25/20 [Rx] metoprolol succinate 100 mg PO DAILY #30 tab 04/25/20 [Rx] nitroglycerin 0.4 mg SUBLINGUAL Q5M PRN #30 tab 04/25/20 [Rx] rivaroxaban [Xarelto] 20 mg PO DAILY #30 tab 04/25/20 [Rx] Coding Level of Care Code D/C Day Management >30 mins Diagnoses Acute KS I21.9
== END 2020-04-25 19:40 | disposition home or self-care (01) | DRG 247 ==
LOC: ED 01:45 → CC 02:33 → 1E 03:49 → 2S 20:08

== ENCOUNTER 2024-03-06 09:45 | Observation (INO) ==
--- NOTE | 2024-03-06 10:50 | Emergency Department Note ---
History of Present Illness General Chief complaint: Infection Stated complaint: ARM INFECTION NOT GETTING ANY BETTER Time Seen by Provider: 03/06/24 10:12 History of Present Illness Maximum Pain Intensity: 7 This is a 59-year-old [id number] male who presents to the emergency department via private vehicle accompanied by with complaints of "left arm infection". The patient states that he was seen here on 03/02/2024 for left elbow swelling and pain. He notes that the area was drained and he was placed on oral antibiotics. He has been taking the Keflex and Bactrim as prescribed. He has been utilizing the wrap to the area. However, he did note some additional swelling into the distal left upper extremity. In addition, he also notes new left medial elbow erythema/edema that he notes was not present previously. This is despite taking antibiotics since his recent ED visit. He has been compliant with the antibiotics as prescribed. Patient denies any systemic infection symptoms. He denies any fevers or chills. No nausea or vomiting. Review of the patient's culture from previous visit reveals Staph aureus. This was pansensitive. Home Medications Medication Instructions Recorded Confirmed Type nitroglycerin 0.4 mg sublingual 0.4 mg sublingual Q5M PRN chest 04/25/20 03/06/24 Rx tablet pain #30 tabs metoprolol succinate 100 mg 100 mg PO DAILY #90 tabs 01/19/22 03/06/24 Rx tablet,extended release 24 hr clopidogrel 75 mg tablet 75 mg PO DAILY #10 tabs 07/28/23 03/06/24 Rx lisinopril 5 mg tablet 5 mg PO DAILY #90 tabs 09/09/23 03/06/24 Rx meloxicam 15 mg tablet 15 mg PO DAILY 09/29/23 03/06/24 History tamsulosin 0.4 mg capsule 0.4 mg PO DAILY #90 caps 01/15/24 03/06/24 Rx atorvastatin 80 mg tablet 80 mg PO QAM #90 tabs 01/24/24 03/06/24 Rx cephalexin 500 mg capsule 500 mg PO Q6H 7 days #28 caps 03/03/24 03/06/24 Rx sulfamethoxazole 800 1 tab PO BID 7 days #14 tabs 03/03/24 03/06/24 Rx mg-trimethoprim 160 mg tablet (Bactrim DS) Allergies Allergy/AdvReac Type Severity Reaction Status Date / Time Penicillins Allergy Intermediate Rash Verified 12/12/23 14:58 Past Med/Surg History Problem List (Updated 03/06/24 @ 17:22 by Logan Meraz PA-C) Cellulitis of left elbow (Acute) Olecranon bursitis (Acute) Elevated PSA Benign localized prostatic hyperplasia with lower urinary tract symptoms (LUTS) BPH (benign prostatic hyperplasia) CAD (coronary artery disease) S/P drug eluting coronary stent placement Uriostegui's palsy (Acute) Medical History Torn meniscus ST elevation myocardial infarction (STEMI) of anterior wall Admitted to intensive care unit Acute CA No pertinent past medical history Surgical History History of hernia surgery H/O prostate biopsy S/P PTCA (percutaneous transluminal coronary angioplasty) Family History Mother Hypertension Bowel cancer Brother Hypertension Nephrolithiasis Social History Smoking Status: Never smoker Hx Alcohol Use: No Hx Substance Use: No Preferred Language: Jamaican Communication Ability: Effective Director Of Photography Required: No Beliefs That Will Affect Care: None marital status: Current Living Situation: Spouse current occupational status: employed current occupation: [employer] Feels Safe at Home: Yes Assistive Devices: Glasses and Hearing Aid - Bilateral Review of Systems A total of 10 systems reviewed and were otherwise negative Physical Exam Vital Signs Vital Signs - 24 hr 03/06/24 09:49 Temperature 36.8 C Temperature Source Oral Pulse Rate 88 Pulse Rhythm Regular Pulse Strength Normal Respiratory Rate 18 Respiratory Effort / Characteristics Non-Labored Spontaneous Respiratory Depth Normal Respiratory Pattern Regular Blood Pressure 115/75 Blood Pressure Mean 88 Blood Pressure Position Sitting Pulse Oximetry 96 Oxygen Delivery Method Room Air Sepsis Recent Fever Within 48 Hours No Sepsis New/Unexplained Change in Mental Status No Sepsis Action Taken by Nursing No Action Required VITAL SIGNS - Vital signs and nursing notes were reviewed. Stable and afebrile. GENERAL -59-year-old male appearing his stated age who is in no acute distress. Communicates well with provider and answers questions appropriately. SKIN -there is erythema and edema most pronounced in the posterior soft tissues overlying the olecranon. There is however erythema overlying the left medial elbow area that tracks with a pinkish hue to the soft tissue overlying the left medial bicep area towards the axilla. In addition, the erythema and edema also tracks distally into the left forearm and dorsal left hand region. The left radial pulse is within normal limits. No open wounds except for a tiny skin defect to soft tissue overlying the olecranon. HEAD - NC/AT. LUNGS - Chest wall symmetric without accessory muscle use, intercostals retractions, or central cyanosis. Normal vesicular breath sounds CTA B/L. No wheezes, rales, or rhonchi appreciated. CARDIAC - RRR EXTREMITIES - No clubbing or peripheral cyanosis. Skin as above. Mild tenderness overlying the left elbow. There is no bony tenderness. Left upper extremity well-perfused. Left radial pulse within normal limits. Applications Engineer Manufacturing strength within normal limits. +5/5 strength noted in UE/LE bilaterally. NEUROLOGIC -patient is neurovascularly intact throughout the left upper extremity without deficit. PSYCH -alert, oriented and pleasant on exam. Course Administered Medications Lactated Ringer's (Lr) 1,000 mls @ 125 mls/hr IV .Q8H VIVIAN Stop: 03/06/24 19:44 Last Admin: 03/06/24 12:30 Dose: 125 mls/hr Documented By: TYLER Discontinued Medications Cefazolin Sodium (Ancef 2000mg) 2,000 mg in 15 mls @ 3.75 mls/min IV NOW STA Stop: 03/06/24 10:38 Last Admin: 03/06/24 10:53 Dose: 3.75 mls/min Documented By: TYLER Medical Decision Making Laboratory Data 03/06/24 10:43 03/06/24 10:43 Lab Results 03/06/24 Range/Units 10:43 WBC 9.82 (4.8-10.8) K/ul RBC 4.81 (4.70-6.10) M/uL Hgb 14.2 (14.0-18.0) g/dl Hct 41.9 L (42.0-52.0) % MCV 87.1 (80.0-100.0) fL MCH 29.5 (25.0-34.0) pg MCHC 33.9 (32.0-36.0) g/dL RDW Std Deviation 40.0 (36.4-46.3) fL RDW Coeff of Neela 12.5 (11.5-14.5) % Plt Count 353 (130-400) K/uL MPV 9.5 (9.4-12.4) fL Immature Gran % (Auto) 0.9 % Neut % (Auto) 69.7 % Lymph % (Auto) 15.4 % Taylor % (Auto) 8.7 % Eos % (Auto) 4.5 % Baso % (Auto) 0.8 % Neut # (Auto) 6.85 H (1.40-6.50) K/uL Lymph # (Auto) 1.51 (1.20-3.40) K/uL Taylor # (Auto) 0.85 H (0.11-0.59) K/uL Eos # (Auto) 0.44 (0.00-0.50) K/uL Baso # (Auto) 0.08 (0.00-0.20) K/uL Immature Gran # (Auto) 0.09 (0.01-0.20) K/uL ESR 33 H (0-20) mm/hr Sodium 135 L (136-145) mmol/L Potassium 4.5 (3.5-5.1) mmol/L Chloride 105 (98-107) mmol/L Carbon Dioxide 23 (21-32) mmol/L Anion Gap 7 (3-11) BUN 21 (6-23) mg/dl Creatinine 1.05 (0.6-1.4) mg/dl Est Cr Clr Drug Dosing 86.2 ml/min Est GFR ( Amer) 89.0 ml/min Est GFR (Non-Af Amer) 76.8 ml/min BUN/Creatinine Ratio 20.0 (10-20) Glucose 128 H (70-99(Fasting)) mg/dl Calcium 9.6 (8.6-10.3) mg/dl Total Bilirubin 0.7 (0.2-1.0) mg/dl AST 12 L (13-39) U/L ALT 15 (7-52) U/L Alkaline Phosphatase 42 (34-104) U/L C-Reactive Protein 3.55 H (0-0.5) mg/dl Total Protein 7.1 (6.0-8.3) gm/dl Albumin 4.0 (3.4-5.0) gm/dl Globulin 3.1 (2.5-4.0) gm/dl Albumin/Globulin Ratio 1.3 (0.9-2) Procalcitonin 0.04 (0-0.5) ng/ml MDM Narrative Patient was seen and evaluated as above in room B11. Review was performed of triage nursing notes and vital signs. I did review pertinent previous visits and patient history. After obtaining a thorough history and physical examination the above work up was performed. Patient presents to us today for evaluation of left upper extremity swelling and erythema but overall improving pain status post recent diagnosis here in the ED of cellulitis of the left elbow/olecranon bursitis currently on oral antibiotics. He has been compliant with the antibiotics. To inspection, the left upper extremity does exhibit a pinkish hue/erythema overlying the left posterior elbow that tracks medially and proximally overlying the soft tissues just medial to the bicep as well as distally into the forearm/dorsal left hand area. Although patient notes improvement of pain compared to previous, it appears that some of the swelling is new as well as the erythema to the left medial elbow. He denies any immune compromising conditions. Patient does ask about returning to work as he is eager to return. Options of care were discussed with the patient. IV access was established. Labs were drawn. Patient does not have any systemic infectious symptoms but does have what appears to be evolving symptoms of the left upper extremity despite oral antibiotics over the past few days. Specifically, it is noted that the erythema of the left medial elbow appears to be new. There is also a pinkish hue tracking proximal within the soft tissues overlying the left medial bicep area. Some of the edema of the left upper extremity tracking distal may be secondary to the compressive wrap/dependent edema however the new erythema to the left medial elbow does not appear to be secondary to wrap. The patient was reevaluated several times here and the appearance of left arm continued to show the edema and erythema despite several hours passing since the wrap was removed. I am concerned that persistent infection is present and that the erythema and edema is not just secondary to the compressive wrap. IV antibiotics were ordered. Noting symptoms/signs despite several days now of appropriate culture guided oral antibiotics, at this time we will proceed with inpatient management. Case discussed with the hospitalist service. There is no leukocytosis or concerning anemia. Mild hyponatremia 135. Mild hyperglycemia 128. No evidence of kidney failure. Procalcitonin within normal range at 0.04. In discussing this with the medicine service, I also reviewed this with orthopedics that will evaluate the patient. I did add on inflammatory markers to include ESR and CRP. These did return elevated but I will note an improved CRP compared to previous but now an elevated ESR. GCS: 15 In the evaluation and treatment of this patient the following differential diagnoses were entertained: Cellulitis, septic bursitis, bacteremia, osteomyelitis, retained foreign body, among others. Impression & Plan Cellulitis of left elbow, Olecranon bursitis Discharge Plan Visit Data Chief Complaint: Infection Stated Complaint: ARM INFECTION NOT GETTING ANY BETTER ED Provider: Agustin Luz ED Midlevel Provider: Logan Meraz Discharge Problem: Cellulitis of left elbow, Olecranon bursitis Patient Disposition: Admitted As Inpatient Condition: Good Discharge Instructions Interventions: ED Discharge Assessment Last Done: 03/06/24 12:28
[2024-03-06] MEDS: ceFAZolin 2000MG 2,000 MG/15 ML SYR IV STA (10:53)
--- NOTE | 2024-03-06 11:16 | History & Physical Report ---
Date of Service March 06, 2024 Assessment & Plan (1) Olecranon bursitis: Plan: MSSA septic bursitis - failed outpatient keflex/Bactrim ?bacteremic vs. need for washout vs wrapping just causing increased swelling (given improvement in labs) IV cefazolin Consult orthopedics to consider washout (2) Cellulitis of left elbow: Plan: Elevated Left upper extremity IV cefazolin as above, no need for MRSA coverage Plan VTE Prophylaxis - Lovenox 40mg SQ daily Diet - NPO pending orthopedic evaluation Disposition - observation to med/tele until bacteremia ruled out Admission and Anticipated Discharge Date Admission Date: March 06, 2024 History of Present Illness Chief Complaint: Left arm swelling and erythema Primary Care Provider: Criselda Escalante PA-C Ney Alexandra is a 59 year old male who presents to the ER with worsening erythema and swelling of left arm. He reports initial symptoms started 6 days ago with swelling and pain around the left olecranon bursa. Erythema started spreading down ot the mid forearm when he decided to come to the ER on 4 days ago. The olecranon bursa was aspirated and subsequently grew MSSA. He was given ceftriaxone in the ER and discharged on keflex and Bactrim which he reports starting the same day. He was complaint with wrapping his elbow and elevating it as much as possible. The swelling (but not erythema) initially worsened with his hand also being involved. The swelling has improved over the last few days but the erythema especially on his medial elbow has become worse and he was concerned about going back to work therefore decided to return to the ER for re- evaluation. He denies any fever or chills. He is not on immunosuppressant medications and no immunosuppressed state. Allergies Allergy/AdvReac Type Severity Reaction Status Date / Time Penicillins Allergy Intermediate Rash Verified 12/12/23 14:58 Home Medications Medication Instructions Recorded Confirmed Type nitroglycerin 0.4 mg sublingual 0.4 mg sublingual Q5M PRN chest 04/25/20 03/06/24 Rx tablet pain #30 tabs metoprolol succinate 100 mg 100 mg PO DAILY #90 tabs 01/19/22 03/06/24 Rx tablet,extended release 24 hr clopidogrel 75 mg tablet 75 mg PO DAILY #10 tabs 07/28/23 03/06/24 Rx lisinopril 5 mg tablet 5 mg PO DAILY #90 tabs 09/09/23 03/06/24 Rx meloxicam 15 mg tablet 15 mg PO DAILY 09/29/23 03/06/24 History tamsulosin 0.4 mg capsule 0.4 mg PO DAILY #90 caps 01/15/24 03/06/24 Rx atorvastatin 80 mg tablet 80 mg PO QAM #90 tabs 01/24/24 03/06/24 Rx cephalexin 500 mg capsule 500 mg PO Q6H 7 days #28 caps 03/03/24 03/06/24 Rx sulfamethoxazole 800 1 tab PO BID 7 days #14 tabs 03/03/24 03/06/24 Rx mg-trimethoprim 160 mg tablet (Bactrim DS) Past Med/Surg History Problem List (Updated 03/03/24 @ 01:00 by Kimberly Ricci PA-C) Cellulitis of left elbow (Acute) Olecranon bursitis (Acute) Elevated PSA Benign localized prostatic hyperplasia with lower urinary tract symptoms (LUTS) BPH (benign prostatic hyperplasia) CAD (coronary artery disease) S/P drug eluting coronary stent placement Uriostegui's palsy (Acute) Medical History Torn meniscus ST elevation myocardial infarction (STEMI) of anterior wall Admitted to intensive care unit Acute [place] No pertinent past medical history Surgical History History of hernia surgery H/O prostate biopsy S/P PTCA (percutaneous transluminal coronary angioplasty) Family History Mother Hypertension Bowel cancer Brother Hypertension Nephrolithiasis Social History Smoking Status: Never smoker Hx Alcohol Use: No Hx Substance Use: No Preferred Language: Macedonian Communication Ability: Effective Entry Level Project Engineer Required: No Beliefs That Will Affect Care: None marital status: Current Living Situation: Spouse current occupational status: employed 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 Feels Safe at Home: Yes Assistive Devices: Glasses Review of Systems 2 Review of Systems: All systems reviewed & are unremarkable except as noted in HPI & below Occasional nocturia - at baseline Physical Exam 2 Constitutional: WD/WN, vitals as above Eyes: + anicteric sclerae; normal pupil size ENMT: external ear and nose normal, oropharynx normal Respiratory: normal respiratory effort, lungs clear to auscultation Cardiovascular: RRR, no murmur, no edema Gastrointestinal (Abdomen): normal bowel sounds, soft, nontender, no hepatosplenomegaly Skin: Erythema and swelling of left arm, erythema mainly on medial aspect of left elbow with fluctuance to olecranon bursa Neurologic: moves all extremities and awake; not confused Psychiatric: A+Ox3, euthymic affect Results & Data Results & Data Vital Signs (Past 12 Hours) Vital Signs Temp Pulse Resp BP Pulse Ox O2 Del Method 03/06/24 09:49 36.8 C 88 18 115/75 96 Room Air Laboratory Results Abnormal lab results 03/06/24 Range/Units 10:43 Hct 41.9 L (42.0-52.0) % Neut # (Auto) 6.85 H (1.40-6.50) K/uL [place] # (Auto) 0.85 H (0.11-0.59) K/uL Sodium 135 L (136-145) mmol/L Glucose 128 H (70-99(Fasting)) mg/dl AST 12 L (13-39) U/L Diagnostic Findings None Medications Administered ER Medications Given: Cefazolin 2000mg IV ECG Additional Comments: Pending on admission Code Status & VTE Plan Code Status Full VTE Prophylaxis Plan VTE Prophylaxis will be ordered: Yes PG Care Time/CCT Total # of Minutes Spent Total Time Spent with Patient: Total time spent is greater than 50% in coordination of care (as documented) at patient's floor/unit and/or counseling patient: Coding Level of Care Code 32916 INT INP/OBS CARE 2/55MIN Diagnoses Olecranon bursitis M70.22 Laterality: left Cellulitis of left elbow L03.114 (1) Olecranon bursitis Laterality: left Qualified Code(s): M70.22 - Olecranon bursitis, left elbow
[2024-03-06 11:28] LABS: Basophils # (auto) 0.08 K/uL (0.00-0.20); Basophils % (auto) 0.8 %; Eosinophils # (auto) 0.44 K/uL (0.00-0.50); Eosinophils % (auto) 4.5 %; Hematocrit (blood only) 41.9 % (42.0-52.0); Hemoglobin 14.2 g/dl (14.0-18.0); Immature Granulocytes # (auto) 0.09 K/uL (0.01-0.20); Immature Granulocytes % (auto) 0.9 %; Lymphocytes # (auto) 1.51 K/uL (1.20-3.40); Lymphocytes % (auto) 15.4 %; Mean Corpuscular Hemoglobin 29.5 pg (25.0-34.0); Mean Corpuscular Hgb Conc 33.9 g/dL (32.0-36.0); Mean Corpuscular Volume 87.1 fL (80.0-100.0); Mean Platelet Volume 9.5 fL (9.4-12.4); Monocytes # (auto) 0.85 K/uL (0.11-0.59); Monocytes % (auto) 8.7 %; Neutrophils # (auto) 6.85 K/uL (1.40-6.50); Neutrophils % (auto) 69.7 %; Platelet Count 353 K/uL (130-400); RDW Coefficient of Variation 12.5 % (11.5-14.5); Red Blood Count 4.81 M/uL (4.70-6.10); White Blood Count 9.82 K/ul (4.8-10.8)
[2024-03-06 11:32] LABS: Albumin Globulin Ratio 1.3 (0.9-2); Bilirubin,Total 0.7 mg/dl (0.2-1.0); Calcium 9.6 mg/dl (8.6-10.3); Creatinine Clr Calc Pharmacy 86.2 ml/min; Est GFR (Non-African American) 76.8 ml/min; Globulin 3.1 gm/dl (2.5-4.0); Potassium 4.5 mmol/L (3.5-5.1); Total Protein 7.1 gm/dl (6.0-8.3)
[2024-03-06] MEDS: LACTATED RINGER'S 1,000 ML IV SCH (12:30)
[2024-03-06 13:18] LABS: C Reactive Protein 3.55 mg/dl (0-0.5)
--- NOTE | 2024-03-06 16:45 | Orthopedic Consultation ---
Date of Service March 06, 2024 Assessment & Plan (1) Cellulitis of left elbow: (2) Olecranon bursitis: Plan 59-year-old male with first-time septic olecranon bursitis with surrounding cellulitis presented back to the ER with improving signs and symptoms. At this point, I think the original aspiration from 03/02 was effective at decompressing the space and isolating the organism. Recommend continued nonsurgical management, with parenteral antibiotics while inpatient and transition to an outpatient oral regimen. I did outreach counselor the patient and his that this is best treated with soft tissue rest. He should be elevating with a soft pillow. 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 Should consider returning to work with an elbow pad or other protective compressive device. Would not return until erythema and s welling is significantly reduced. This may take 1 to 2 weeks. Will continue to follow progress with a repeat exam tomorrow. History of Present Illness Reason for Consultation: Bounce back for left elbow septic bursitis and cellulitis Requesting Physician: . Attending Physician: Igor Huffman MD 59-year-old male returns to the emergency room today because of increased swelling and erythema about his elbow. Overall he thinks he is making progress but it is still painful. He was anxious to return to work as soon as possible. 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 This is his first episode of bursitis. He has been tolerating his home regimen of antibiotics fine. Swelling and erythema are improved since removing a tight wrap. Allergies Allergy/AdvReac Type Severity Reaction Status Date / Time Penicillins Allergy Intermediate Rash Verified 12/12/23 14:58 Home Medications Medication Instructions Recorded Confirmed Type nitroglycerin 0.4 mg sublingual 0.4 mg sublingual Q5M PRN chest 04/25/20 03/06/24 Rx tablet pain #30 tabs metoprolol succinate 100 mg 100 mg PO DAILY #90 tabs 01/19/22 03/06/24 Rx tablet,extended release 24 hr clopidogrel 75 mg tablet 75 mg PO DAILY #10 tabs 07/28/23 03/06/24 Rx lisinopril 5 mg tablet 5 mg PO DAILY #90 tabs 09/09/23 03/06/24 Rx meloxicam 15 mg tablet 15 mg PO DAILY 09/29/23 03/06/24 History tamsulosin 0.4 mg capsule 0.4 mg PO DAILY #90 caps 01/15/24 03/06/24 Rx atorvastatin 80 mg tablet 80 mg PO QAM #90 tabs 01/24/24 03/06/24 Rx cephalexin 500 mg capsule 500 mg PO Q6H 7 days #28 caps 03/03/24 03/06/24 Rx sulfamethoxazole 800 1 tab PO BID 7 days #14 tabs 03/03/24 03/06/24 Rx mg-trimethoprim 160 mg tablet (Bactrim DS) Past Med/Surg History Problem List Cellulitis of left elbow (Acute) Olecranon bursitis (Acute) Elevated PSA Benign localized prostatic hyperplasia with lower urinary tract symptoms (LUTS) BPH (benign prostatic hyperplasia) CAD (coronary artery disease) S/P drug eluting coronary stent placement Uriostegui's palsy (Acute) Medical History Torn meniscus ST elevation myocardial infarction (STEMI) of anterior wall Admitted to intensive care unit Acute CA No pertinent past medical history Surgical History History of hernia surgery H/O prostate biopsy S/P PTCA (percutaneous transluminal coronary angioplasty) Family History Mother Hypertension Bowel cancer Brother Hypertension Nephrolithiasis Social History Smoking Status: Never smoker Hx Alcohol Use: No Hx Substance Use: No Preferred Language: Libyan Communication Ability: Effective Power Transformer Inspector Required: No Beliefs That Will Affect Care: None marital status: Current Living Situation: Spouse current occupational status: employed 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 Physical Exam Left upper extremity: Full active range of motion of his elbow wrist and digits. There is very faint erythema about the medial epicondyle there encroaches on the volar side. Mild erythema extends from the area over the olecranon. No sig nificant erythema moving proximally. No palpable effusion of the elbow and again full painless range of motion including pronation supination. The olecranon area has a slight bogginess to it. No free fluid fluctuance. Very minimal tenderness to the bursa and along the triceps insertion. Skin edema looks to be significantly reduced with wrinkled deflated skin in appearance. Overall no obvious fluid collections or masses that need to be decompressed. It looks like it is improving or evolving. Constitutional WD/WN, vitals as above no acute distress and not intoxicated appearing Respiratory normal respiratory effort; no labored breathing Cardiovascular Extremities: normal capillary refill Results & Data Results & Data Laboratory Results Laboratory Tests 03/02/24 03/02/24 03/02/24 21:34 21:34 21:34 WBC 12.90 H Neut # (Auto) 9.42 H ESR C-Reactive Protein 7.98 H 03/02/24 03/06/24 03/06/24 21:34 10:43 10:43 WBC 9.82 Neut # (Auto) 6.85 H ESR 15 C-Reactive Protein 03/06/24 03/06/24 10:43 10:43 WBC Neut # (Auto) ESR 33 H C-Reactive Protein 3.55 H Diagnostic Findings X-rays of the elbow from 03/02 were unremarkable. PG Care Time/CCT Total # of Minutes Spent Total Time Spent with Patient: Total time spent is greater than 50% in coordination of care (as documented) at patient's floor/unit and/or counseling patient: Coding Level of Care Code 10816 IN/OBS CONSULT LVL 4,60M Diagnoses Cellulitis of left elbow L03.114 Olecranon bursitis M70.22 Laterality: left (2) Olecranon bursitis Laterality: left Qualified Code(s): M70.22 - Olecranon bursitis, left elbow
--- NOTE | 2024-03-06 17:36 | Electrocardiogram Report ---
Test Reason : Blood Pressure : / mmHG Vent. Rate : 068 BPM Atrial Rate : 068 BPM P-R Int : 176 ms QRS Dur : 082 ms QT Int : 386 ms P-R-T Axes : 018 -07 -07 degrees QTc Int : 410 ms Normal sinus rhythm Abnormal ECG When compared with ECG of 24-APR-2020 08:11, Premature ventricular complexes are no longer Present ST no longer elevated in Anterolateral leads Confirmed by Uziel Mcgrath ([id number]) on 03/06/2024 5:36:08 PM Referred By: REFERRED SELF Confirmed By:Uziel Mcgrath
[2024-03-06] MEDS: ceFAZolin 2000MG 2,000 MG/15 ML SYR IV SCH (18:05)
[2024-03-06] MEDS: ENOXAPARIN INJ 40 MG/0.4 ML SYR SQ SCH (20:41)
[2024-03-07 07:10] LABS: Basophils # (auto) 0.11 K/uL (0.00-0.20); Eosinophils # (auto) 0.46 K/uL (0.00-0.50); Hematocrit (blood only) 42.7 % (42.0-52.0); Hemoglobin 14.2 g/dl (14.0-18.0); Immature Granulocytes # (auto) 0.12 K/uL (0.01-0.20); Immature Granulocytes % (auto) 1.1 %; Lymphocytes # (auto) 1.66 K/uL (1.20-3.40); Lymphocytes % (auto) 14.6 %; Mean Corpuscular Hemoglobin 29.5 pg (25.0-34.0); Mean Corpuscular Hgb Conc 33.3 g/dL (32.0-36.0); Mean Corpuscular Volume 88.8 fL (80.0-100.0); Mean Platelet Volume 9.5 fL (9.4-12.4); Monocytes # (auto) 0.88 K/uL (0.11-0.59); Monocytes % (auto) 7.7 %; Neutrophils # (auto) 8.15 K/uL (1.40-6.50); Neutrophils % (auto) 71.6 %; Platelet Count 363 K/uL (130-400); RDW Coefficient of Variation 12.6 % (11.5-14.5); RDW Standard Deviation 41.1 fL (36.4-46.3); Red Blood Count 4.81 M/uL (4.70-6.10); White Blood Count 11.38 K/ul (4.8-10.8)
[2024-03-07] MEDS: ATORVASTATIN 40 MG TAB PO SCH (07:30)
[2024-03-07] MEDS: lisinopril 5 MG TAB PO SCH (07:30)
[2024-03-07] MEDS: MELOXICAM 7.5 MG TAB PO SCH (07:30)
[2024-03-07] MEDS: CLOPIDOGREL BISULFATE 75 MG TAB PO SCH (07:31)
[2024-03-07] MEDS: TAMSULOSIN HCL 0.4 MG CAP PO SCH (07:31)
[2024-03-07] MEDS: METOPROLOL SUCC 50MG EXT REL TAB PO SCH (07:31)
[2024-03-07 07:36] LABS: Calcium 9.4 mg/dl (8.6-10.3); Creatinine Clr Calc Pharmacy 80.7 ml/min; Est GFR (African American) 73.5 ml/min; Est GFR (Non-African American) 63.4 ml/min; Potassium 4.7 mmol/L (3.5-5.1)
--- NOTE | 2024-03-07 13:31 | Discharge Summary ---
Date of Service March 07, 2024 Admission HPI Per Admitting Provider Ney Alexandra is a 59 year old male who presents to the ER with worsening erythema and swelling of left arm. He reports initial symptoms started 6 days ago with swelling and pain around the left olecranon bursa. Erythema started spreading down ot the mid forearm when he decided to come to the ER on 4 days ago. The olecranon bursa was aspirated and subsequently grew MSSA. He was given ceftriaxone in the ER and discharged on keflex and Bactrim which he reports starting the same day. He was complaint with wrapping his elbow and elevating it as much as possible. The swelling (but not erythema) initially worsened with his hand also being involved. The swelling has improved over the last few days but the erythema especially on his medial elbow has become worse and he was concerned about going back to work therefore decided to return to the ER for re- evaluation. He denies any fever or chills. He is not on immunosuppressant medications and no immunosuppressed state. Principal Diagnosis olecranon bursitis/cellulitis Discharge Exam Constitutional WD/WN, vitals as above Eyes PERRL, conjunctivae normal, anicteric sclerae Respiratory normal respiratory effort, lungs clear to auscultation Cardiovascular RRR, no murmur, no edema Skin erythema and mild edema over left olecranon process. Warm to touch. Psychiatric A+Ox3, euthymic affect Discharge Data Allergies Allergy/AdvReac Type Severity Reaction Status Date / Time Penicillins Allergy Intermediate Rash Verified 12/12/23 14:58 Consultations 03/06/24 11:16 ED Decision to Admit Stat 03/06/24 11:39 Consult Orthopedic Surgery Stat Ordered Studies 03/07/24 06:23 03/07/24 06:23 Vital Signs Temp 36.7 C 03/07/24 13:35 Pulse 70 03/07/24 13:35 Resp 18 03/07/24 13:35 BP 115/75 03/07/24 13:35 Pulse Ox 94 03/07/24 13:35 O2 Del Method Room Air 03/07/24 11:32 Hospital Course (1) Olecranon bursitis: Patient originally presented to the ED on 03/02 with complaints of left elbow pain/erythema. Drainage performed and culture was + for MSSA. He was sent home on Keflex and Bactrim. He presented back to the ED on 03/06 with complaints of increased edema on his left elbow but noted the erythema had decreased. He was placed on IV cefazolin and orthopedics was consulted. Reviewed orthopedics note that was consistent with conservative management and PO antibiotics on discharge with a follow up in their office in 1-2 weeks. Blood cultures negative at 24 hour jayjay. Less likely sepsis due to stable WBC and normal vital signs. He was recommended to finish his course of Keflex and Bactrim as WBC and CRP improved from 03/02. He was recommended to follow up with PCP within 1-2 weeks as well. (2) Cellulitis of left elbow: see plan above Total Time Total Time Spent Total Time Spent (In Minutes): 32 Total Time Includes: Examination of the Patient, Discharge Planning, Medication Reconciliation and Communication With Other Providers Discharge Plan Discharge Items Patient Disposition: Home - Self-Care Reason For Visit: LEFT UPPER EXTEMITY CELLULITIS Discharge Diagnosis: left upper extremity cellulitis and bursitis Condition on Discharge: Good Activity: Per Instructions section Non-emergency contact: Primary Care Provider Call non-emergency contact if: you have any medication questions, your symptoms worsen and you have a fever Follow-up/Referrals: Criselda Escalante PA-C [Primary Care Provider] - Diet: Heart Healthy Addtl Attending Provider Instructions: Mr. Alexandra, You were recently hospitalized due to your left arm cellulitis/bursitis. You have been treated with IV antibiotics. Please see your discharge recommendations below. 1. Please resume the previous outpatient antibiotics this evening 03/07/2024 -Please finish course of Keflex and Bactrim. 2. Please ice, use compression, and elevate your left elbow 3. Please continue on your Meloxicam and use Tylenol as needed for breakthrough pain. 4. You may resume your previous outpatient medications as prescribed. 5. Please continue to rest your left elbow. Would recommend avoiding strenuous activities for the next 1-2 weeks. 6. Please follow up with orthopedics within 1-2 weeks. Please follow up with your PCP within 1-2 weeks. If you develop any extreme pain in left arm, fevers, chills, chest pain, shortness of breath please report back to the ER. Sincerely, Allison Hardy PA-C Pending Studies at Discharge: Yes Stand-Alone Forms: My [facility], Work/School Release, Smoking Cessation Medications and DC Order Prescriptions: Continued metoprolol succinate 100 mg tablet extended release 24 hr 100 mg PO DAILY Qty: 90 3RF clopidogrel 75 mg tablet 75 mg PO DAILY Qty: 10 0RF lisinopril 5 mg tablet 5 mg PO DAILY Qty: 90 3RF tamsulosin 0.4 mg capsule 0.4 mg PO DAILY Qty: 90 3RF atorvastatin 80 mg tablet 80 mg PO QAM Qty: 90 3RF meloxicam 15 mg tablet 15 mg PO DAILY nitroglycerin 0.4 mg tablet, sublingual 0.4 mg sublingual Q5M PRN (Reason: chest pain) Qty: 30 0RF sulfamethoxazole-trimethoprim [Bactrim DS] 800-160 mg tablet 1 tab PO BID 7 Days Qty: 14 0RF cephalexin 500 mg capsule 500 mg PO Q6H 7 Days Qty: 28 0RF Discharge Orders: Discharge Order (Routine); Ordered 03/07/24 Ordered By: Allison Oconnor/Other Patient Handouts: What Is Bursitis Admission Data Admit Date/Time: 03/06/24 11:07 Attending Provider: Barber Aceves Admit Provider: Igor Huffman Primary Care Provider: Criselda Escalante Other Providers: Igor Huffman; Allan Yeh Other Interventions: Discharge Summary Assessment (RN) Last Done: 03/07/24 13:35 Supervising Physician Co-Signing Physician Notes The patient was not seen by me. The chart was reviewed. Case discussed with INESSA Byrd. Agree with assessment and plan Coding Level of Care Code 19570 INP/OBS DISCH >30 MIN Diagnoses Olecranon bursitis M70.20 Cellulitis of left elbow L03.114
--- NOTE | 2024-03-07 19:30 | Electrocardiogram Report ---
Test Reason : Blood Pressure : / mmHG Vent. Rate : 067 BPM Atrial Rate : 067 BPM P-R Int : 174 ms QRS Dur : 076 ms QT Int : 382 ms P-R-T Axes : 023 011 005 degrees QTc Int : 403 ms Normal sinus rhythm Nonspecific T wave abnormality Abnormal ECG When compared with ECG of 24-APR-2020 08:11, Premature ventricular complexes are no longer Present Criteria for Inferior infarct are no longer Present ST no longer elevated in Anterolateral leads Confirmed by Abilio Caldera ([id number]) on 03/07/2024 7:29:47 PM Referred By: REFERRED SELF Confirmed By:Abilio Caldera
== END 2024-03-07 14:11 | disposition home or self-care (01) ==
LOC: ED 09:45 → 2N 09:45 → SUATTDRO 11:07 → 2N 12:28